=== PATIENT | female | born 1995 | race Caucasian/White ===

== ENCOUNTER → 2024-05-13 | Emergency (ER) | payer MEDICAID ==
[~2024-05-13] VITALS: Ht 162.6 cm; Wt 66.0 kg
[~2024-05-13] MED LIST: IBUP-2029 MT
[2024-05-13 14:49] VITALS: O2SAT 97
[2024-05-13 16:41] LABS: BASOPHILS % 0.5 % (0.0-2.0); EOSINOPHILS % 0.7 % (0.0-5.0); HEMATOCRIT. 41.1 % (36.0-48.0); HEMOGLOBIN. 13.7 g/dL (12.0-16.0); LYMPHOCYTES % 21.5 % (20.0-50.0); MEAN CORPUSCULAR HGB CONC 33.3 g/dL (31.0-37.0); MEAN CORPUSCULAR VOLUME 93.2 fL (81.0-99.0); MEAN PLATELET VOLUME 9.2 fl (7.4-10.4); MONOCYTES % 4.4 % (2.0-8.0); NEUTROPHILS % 72.9 % (40.0-76.0); PLATELET 307 x1000/uL (130-400); RED BLOOD CELL COUNT 4.42 mill/uL (4.2-5.4); RED CELL DISTRIBUTION WIDTH 14.2 % (11.6-14.6); WHITE BLOOD COUNT 9.8 x1000/uL (4.5-11.0)
[2024-05-13 16:51] LABS: CHLORIDE 107 mEq/L (98-107); POTASSIUM 3.4 mEq/L (3.5-5.1); SODIUM 138 mEq/L (136-145)
[2024-05-13 16:52] LABS: CARBON DIOXIDE 24 mEq/L (21-32)
[2024-05-13 16:53] LABS: CALCIUM 9.2 mg/dL (8.7-10.4)
[2024-05-13 16:57] LABS: CREATININE 0.6 mg/dL (0.6-1.0); GLUCOSE 87 mg/dL (70-105)
[2024-05-13 17:19] LABS: B-HCG QUANTITATIVE 6882 mIU/mL (<3); UREA NITROGEN BLOOD < 5 mg/dL (9-23)
[2024-05-13 17:44] VITALS: BP 127/81; PULSE 100; RESP 18; TEMP 98.1
== END ==
LOC: ER 14:34
DX: N93.9 Abnormal uterine and vaginal bleeding, unspecified (principal)
CPT/HCPCS: 36415; 76801; 80048; 84702; 85025; 86850; 86900; 99284

== ENCOUNTER 2024-05-15 08:58 | Emergency (ER) | payer MEDICAID ==
[~2024-05-15] VITALS: Ht 157.5 cm; Wt 69.9 kg
[2024-05-15 09:10] VITALS: O2SAT 97
[2024-05-15 09:29] LABS: BASOPHILS % 0.5 % (0.0-2.0); EOSINOPHILS % 0.6 % (0.0-5.0); HEMATOCRIT. 42.5 % (36.0-48.0); HEMOGLOBIN. 14.2 g/dL (12.0-16.0); LYMPHOCYTES % 21.7 % (20.0-50.0); MEAN CORPUSCULAR HEMOGLOBIN 31.2 pg (28.0-32.0); MEAN CORPUSCULAR HGB CONC 33.3 g/dL (31.0-37.0); MEAN CORPUSCULAR VOLUME 93.6 fL (81.0-99.0); MONOCYTES % 3.9 % (2.0-8.0); NEUTROPHILS % 73.3 % (40.0-76.0); PLATELET 313 x1000/uL (130-400); RED BLOOD CELL COUNT 4.54 mill/uL (4.2-5.4); RED CELL DISTRIBUTION WIDTH 13.7 % (11.6-14.6); WHITE BLOOD COUNT 8.6 x1000/uL (4.5-11.0)
[2024-05-15] MEDS ORDERED: IBUP-2029 MT (10:31)
[2024-05-15] MEDS: MISOPROSTOL 200MCG TABLET PO ONE (11:45)
[2024-05-15 12:00] VITALS: BP 115/70; PULSE 88; RESP 18; TEMP 98.6
== END 2024-05-15 12:03 | disposition home or self-care (01) ==
LOC: ER 08:58
DX: O03.4 Incomplete spontaneous abortion without complication (principal)
CPT/HCPCS: 36415; 84702; 85025; 99283

== ENCOUNTER 2025-01-23 22:40 | Emergency (ER) | payer MEDICAID ==
[~2025-01-23] VITALS: Ht 157.5 cm; Wt 74.0 kg
[2025-01-23 22:53] VITALS: O2SAT 98
[2025-01-23] MEDS: SODIUM CHLORIDE 0.9% 1,000 ML IV ONE (23:29)
[2025-01-23 23:48] LABS: BASOPHILS % 0.4 % (0.0-2.0); EOSINOPHILS % 0.5 % (0.0-5.0); HEMATOCRIT. 41.9 % (36.0-48.0); HEMOGLOBIN. 14.1 g/dL (12.0-16.0); LYMPHOCYTES % 19.5 % (20.0-50.0); MEAN CORPUSCULAR HEMOGLOBIN 32.4 pg (28.0-32.0); MEAN CORPUSCULAR HGB CONC 33.6 g/dL (31.0-37.0); MEAN CORPUSCULAR VOLUME 96.6 fL (81.0-99.0); MEAN PLATELET VOLUME 10.3 fl (7.4-10.4); MONOCYTES % 5.4 % (2.0-8.0); NEUTROPHILS % 74.2 % (40.0-76.0); PLATELET 221 x1000/uL (130-400); RED BLOOD CELL COUNT 4.34 mill/uL (4.2-5.4); RED CELL DISTRIBUTION WIDTH 14.3 % (11.6-14.6); WHITE BLOOD COUNT 7.5 x1000/uL (4.5-11.0)
[2025-01-23 23:56] LABS: CHLORIDE 101 mEq/L (98-107); D-DIMER 1.72 mg/L FEU (<0.50); INR 0.9; POTASSIUM 3.4 mEq/L (3.5-5.1); PROTHROMBIN TIME 9.9 sec (9.6-11.0); SODIUM 135 mEq/L (136-145)
[2025-01-23 23:57] LABS: CALCIUM 10.1 mg/dL (8.7-10.4); CARBON DIOXIDE 22 mEq/L (21-32)
[2025-01-24 00:02] LABS: CREATININE 0.7 mg/dL (0.6-1.0); GLUCOSE 96 mg/dL (70-105)
[2025-01-24 00:25] LABS: UREA NITROGEN BLOOD 15 mg/dL (9-23)
[2025-01-24 00:27] LABS: ALANINE AMINOTRANSFERASE 47 IU/L (10-49); ALBUMIN 4.4 g/dL (3.2-4.8); ASPARTATE AMINOTRANSFERASE 33 IU/L (<34); BILIRUBIN DIRECT 0.1 mg/dL (<=3.0); BILIRUBIN TOTAL 0.6 mg/dL (0.1-1.0); PROTEIN TOTAL 7.8 g/dL (6.0-8.3)
[2025-01-24 00:57] LABS: B-HCG QUANTITATIVE 39581 mIU/mL (<3)
[2025-01-24 01:00] LABS: TROPONIN I HIGH SENSITIVITY < 4 ng/L (3.0-34)
[2025-01-24 01:15] LABS: CLARITY URINE CLEAR (CLEAR); COLOR URINE YELLOW (YELLOW); GLUCOSE URINE NEGATIVE (NEGATIVE); KETONES URINE 3+ (NEGATIVE); LEUKOCYTE ESTERASE URINE 3+ (NEGATIVE); NITRITE URINE NEGATIVE (NEGATIVE); OCCULT BLOOD URINE NEGATIVE (NEGATIVE); PH URINE 6.5 (4.5-8.0); PROTEIN URINE NEGATIVE (NEGATIVE); SPECIFIC GRAVITY URINE 1.011 (1.005-1.030); UROBILINOGEN URINE 0.2 E.U./dL (0.2-1.0)
[2025-01-24] MEDS ORDERED: CEPH500C2 MT (01:26)
[2025-01-24 01:30] VITALS: BP 128/75; PULSE 89; RESP 13; TEMP 36.7; O2SAT 97
[2025-01-24 02:01] LABS: SQUAMOUS EPITHELIAL CELL URINE 2+ /lpf (RARE/1+)
[2025-01-24 02:02] LABS: BACTERIA URINE 2+
== END 2025-01-24 01:40 | disposition left against medical advice (07) ==
LOC: ER 22:40
DX: O99.513 Diseases of the respiratory system complicating pregnancy, third trimester (principal); R06.02 Shortness of breath; Z3A.35 35 weeks gestation of pregnancy
CPT/HCPCS: 99284; 93970; 96360; 76805; 96361; 80076; 80048; 84702; 83880; 83690; 85025; 85379; 85610; 85730; 86850; 86900; 86901; 84484; 36415; 93005; 81003; J7030